=== PATIENT | female | born 1965 | race Two or more races ===

== ENCOUNTER 2024-10-14 06:24 | Day surgery (SDC) | payer OTHER ==
[2024-10-11 11:09] VITALS: BMI 33.0
[2024-10-14] MEDS ORDERED: LIDOCAINE 1%/EPI 1:100000 (20 ML MULTI DOSE VIAL) ONE (07:15)
[2024-10-14] MEDS ORDERED: PROPOFOL 20 ML ONE (07:48)
[2024-10-14] MEDS ORDERED: LIDOCAINE HCL/PF 2% SDV 5ML VIAL ONE (07:48)
[2024-10-14] MEDS ORDERED: SUCCINYLCHOLINE CHLORIDE 200 MG/10 ML SYRINGE ONE (07:48)
[2024-10-14] MEDS ORDERED: MIDAZOLAM HCL 2 MG/2 ML SINGLE DOSE VIAL ONE (07:48)
[2024-10-14] MEDS ORDERED: ROCURONIUM BROMIDE 50 MG/5 ML SYRINGE ONE (07:48)
[2024-10-14] MEDS ORDERED: ONDANSETRON 4 MG/2 ML VIAL ONE (07:48)
[2024-10-14] MEDS ORDERED: DEXAMETHASONE SOD PHOSPHATE 4 MG/1 ML VIAL ONE (07:48)
[2024-10-14] MEDS ORDERED: ceFAZolin SODIUM 1 GM VIAL ONE (08:03)
[2024-10-14] MEDS: ceFAZolin SODIUM 1 GM VIAL IVPB ONE ×2 (08:12)
[2024-10-14] MEDS: LIDOCAINE 1%/EPI 1:100000 (20 ML MULTI DOSE VIAL) IJ ONE ×2 (08:21)
[2024-10-14] MEDS ORDERED: ACETAMINOPHEN INJECTION 100 ML ONE (09:45)
[2024-10-14] MEDS ORDERED: SUGAMMADEX SODIUM 200 MG/2 ML VIAL ONE (10:13)
[2024-10-14] MEDS ORDERED: ONDANSETRON 4 MG/2 ML VIAL IVPUSH PRN (11:31)
[2024-10-14] MEDS: LACTATED RINGERS SOLUTION 1,000 ML IV SCH (11:33)
[2024-10-14] MEDS ORDERED: oxyCODONE HCL 5 MG TABLET ONE (13:19)
[2024-10-14] MEDS: oxyCODONE HCL 5 MG TABLET PO PRN (13:26)
[2024-10-14 13:31] VITALS: TEMP 97.7
[2024-10-14] MEDS: KETOROLAC TROMETHAMINE 30 MG/1 ML VIAL IVPUSH ONE (15:09)
[2024-10-14 15:46] VITALS: BP 160/84; PULSE 86; RESP 18
== END 2024-10-14 15:50 | disposition home or self-care (01) ==
LOC: JASU-SURG 06:24
PROVIDERS: ATTEND Otolaryngology
PROC: 0CBH0ZZ Excision of Left Submaxillary Gland, Open Approach (ICD-10-PCS; principal; 2024-10-14 08:00)
DX: K11.23 Chronic sialoadenitis (principal)
CPT/HCPCS: 86850; 86900; 86901; 88307-TC; 94760; J0131